=== PATIENT | female | born 2000 | race Caucasian/White ===

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

== ENCOUNTER 2021-05-17 16:50 | Emergency (ER) | payer BC, SELFPAY ==
[2021-05-17 16:51] VITALS: BP 100/72; PULSE 121; RESP 16; TEMP 37.6; O2SAT 100; BMI 24.0
[2021-05-17 17:14] VITALS: BP 100/72; PULSE 121; RESP 16; TEMP 37.6; O2SAT 100
--- NOTE | 2021-05-17 17:39 | EDS_ITS ---
HPI History of Present Illness Chief Complaint: General Illness Narrative Narrative: Patient who denies significant past medical history presents with multiple somatic complaints. She states that she has had the sniffles for weeks. This developed into a sore throat, and now has cough, along with subjective fever, chills, and body aches. She also states that she recently finished her menses/cycle, and now has bilateral lower quadrant abdominal pain and cramping. She denies any diarrhea, no dysuria. She states out of all of her symptoms, the cramping in her abdomen is the worst. No exacerbating or alleviating factors. PFSH PFSH Home Medications ondansetron 4 mg PO Q8H PRN PRN #10 tab 05/09/19 [Rx Last Taken Unknown] Allergy/AdvReac Type Severity Reaction Status Date / Time No Known Allergies Allergy Verified 05/17/21 16:51 Family History Other Hypertension Lung cancer Thyroid disorder Social History Smoking Status: Current every day smoker tobacco type: cigarettes ROS ROS ED ROS Narrative Constitutional: Positive fever, positive chills. HEENT: Positive sore throat. No neck pain. No loss of vision. No rhinorrhea. Cardiovascular: No chest pain. No palpitations. No pedal edema. Respiratory: Occasional cough, mild shortness of breath. Abdominal: Bilateral lower quadrant abdominal pain. No nausea. No vomiting. No diarrhea. Genitourinary: No dysuria. No hematuria. Musculoskeletal: Diffuse myalgias. No arthralgias. Neurologic: Intermittent headaches. No dizziness. No lightheadedness. Skin: No rash. No change in color. Psychiatric: No depression. No anxiety. EXAM Physical Exam Narrative Exam Narrative: Afebrile. Vital signs noted. Nontoxic-appearing. HEENT: Normocephalic. Atraumatic. PERRL, EOMI. Neck soft and supple. No point tenderness or step off. Cardiovascular: Regular rate and rhythm. No murmurs, rubs, or gallops appreciated. Respiratory: No tachypnea. Lungs clear to auscultation bilaterally. Gastrointestinal: Abdomen soft, nontender, with normoactive bowel sounds. No rebound or guarding. Neurological: Awake. Alert. Nonfocal, nonlateralizing. Skin: No rash. Normal color. No pallor. Musculoskeletal: No pedal edema. Full range of motion extremities. Const Vital Signs: 05/17/21 16:51 05/17/21 17:14 05/17/21 19:19 Temperature 99.7 F H 99.7 F H Temperature Source Temporal Temporal Pulse Rate 121 H 121 H 90 Respiratory Rate 16 16 18 Blood Pressure 100/72 100/72 137/60 H Blood Pressure Mean 81 81 85 Pulse Ox 100 100 99 Oxygen Delivery Method Room Air Room Air Room Air MDM MDM MDM Narrative Medical decision making narrative: Comprehensive work-up was pursued. She was swabbed for Covid and influenza. I will obtain basic laboratories and a CT of the abdomen and pelvis. Serum test was obtained along with urinalysis. Her serum test is negative. Her laboratory work is grossly unremarkable with a normal white count of 5.4, hemoglobin stable at 12.2. She is lymphopenic consistent with Covid. Potassium slightly low at 3.4. Her urinalysis is a contaminated specimen. I do not feel that antibiotics are indicated. I do feel that all her symptoms are consistent with COVID-19. Her influenza swab is negative but she is positive for COVID-19. She has been taking Tylenol and Motrin for headache. She will be given 30 mg of Toradol intravenously here. At this point in time I feel she be discharged safely home with follow-up. Return instructions to the emergency department were reviewed. Disposition is discharged home in stable condition. Additionally, I do not feel that she meets any criteria for monoclonal antibodies. Her BMI is not over 25 and she does not have significant comorbidities. Disposition is discharged home in stable condition. Lab Data Attestation: I reviewed the patient's lab results. Labs: Laboratory Results - last 24 hr 05/17/21 05/17/21 05/17/21 17:55 17:55 17:55 WBC 5.4 RBC 4.27 Hgb 12.2 Hct 37.5 MCV 87.8 MCH 28.6 MCHC 32.5 RDW Std Deviation 39.9 RDW Coeff of Radha 12.6 Plt Count 190 MPV 10.5 Immature Gran % (Auto) 0.600 Neut % (Auto) 71.4 H Lymph % (Auto) 11.6 L [place] % (Auto) 14.8 H Eos % (Auto) 0.9 Baso % (Auto) 0.7 Absolute Neuts (auto) 3.8 Absolute Lymphs (auto) 0.62 L Nucleated RBC % 0 Sodium 138 Potassium 3.4 L Chloride 105 Carbon Dioxide 26.0 Anion Gap 7 BUN 5 L Creatinine 0.63 Estim Creat Clear Calc 124.03 Est GFR (MDRD) Af Amer 155 Est GFR (MDRD) Non-Af 128 BUN/Creatinine Ratio 7.9 L Glucose 97 Calcium 8.9 Total Bilirubin 0.20 AST 10 L ALT 21 Alkaline Phosphatase 51 Total Protein 7.8 Albumin 3.9 Globulin 3.9 Albumin/Globulin Ratio 1.0 Serum , Qual NEGATIVE Urine Color Urine Clarity Urine pH Ur Specific [place] Urine Protein Urine Glucose (UA) Urine Ketones Urine Occult Blood Urine Nitrite Urine Bilirubin Urine Urobilinogen Ur Leukocyte Esterase Urine RBC Urine WBC Ur Squamous Epith Cells Urine Bacteria Urine Mucus 05/17/21 18:40 WBC RBC Hgb Hct MCV MCH MCHC RDW Std Deviation RDW Coeff of Radha Plt Count MPV Immature Gran % (Auto) Neut % (Auto) Lymph % (Auto) [place] % (Auto) Eos % (Auto) Baso % (Auto) Absolute Neuts (auto) Absolute Lymphs (auto) Nucleated RBC % Sodium Potassium Chloride Carbon Dioxide Anion Gap BUN Creatinine Estim Creat Clear Calc Est GFR (MDRD) Af Amer Est GFR (MDRD) Non-Af BUN/Creatinine Ratio Glucose Calcium Total Bilirubin AST ALT Alkaline Phosphatase Total Protein Albumin Globulin Albumin/Globulin Ratio Serum , Qual Urine Color SEE COMMENT BELOW Urine Clarity Clear Urine pH 7.0 Ur Specific [place] 1.005 Urine Protein 30 H Urine Glucose (UA) Normal Urine Ketones Negative Urine Occult Blood 250 H Urine Nitrite Negative Urine Bilirubin Negative Urine Urobilinogen Normal Ur Leukocyte Esterase 25 H Urine RBC 25-50 SEEN Urine WBC 0 SEEN Ur Squamous Epith Cells 5-10 SEEN Urine Bacteria 0 SEEN Urine Mucus 0 SEEN Discharge Plan Triage Chief Complaint: General Illness ED Provider: Shreyas Motley Dx/Rx/DC Orders Clinical Impression: COVID-19, Abdominal pain Instructions: Coronavirus Disease 2019 (COVID-19): Caring for Yourself or Others, ED Abdominal Pain Unkn Cause Fem Prescriptions: No Action ondansetron 4 MG tablet 4 mg PO Q8H PRN PRN (Reason: Nausea) Qty: 10 RF: 0 Primary Care Provider: Troy Dupont Referrals: Troy Dupont DO [Primary Care Provider] - 05/27/21 Disposition Disposition: Home, Self Care
[2021-05-17] MEDS: 0.9% Normal Saline 1,000 ML 1000 ML IV (18:02)
[2021-05-17 18:07] LABS: Absolute Lymphocyte Count 0.62 X10^3/uL (0.83-4.51); Absolute Neutrophil Count 3.8 X10^3/uL (2.0-7.7); Basophil# 0.04 X10^3/uL; Basophil% 0.7 % (0-1); Eosinophil# 0.05 X10^3/uL; Eosinophils% 0.9 % (0-5); Hematocrit 37.5 % (37-47); Hemoglobin 12.2 g/dL (12.0-15.0); Lymphocyte # 0.62 X10^3/ul (0.83-4.51); Lymphocyte % 11.6 % (19-41); Mean Corp Hgb Conc 32.5 g/dL (32-36); Mean Corpuscular Hgb 28.6 pg (27.0-32.0); Mean Corpuscular Volume 87.8 fL (81-99); Mean Platelet Vol. 10.5 fl (6.2-12.0); Monocyte# 0.79 X10^3/uL; Monocyte% 14.8 % (0-10); NRBC Flagged by Analyzer 0 % (0-5); Neutrophil # 3.82 X10^3/uL (2.7-7.7); Neutrophil % 71.4 % (47-70); Platelet Count 190 K/mm3 (150-450); RBC Distribution Width CV 12.6 % (11.6-14.6); RBC Distribution Width SD 39.9 fl (35.1-43.9); Red Blood Count 4.27 M/mm3 (4.2-5.4); White Blood Count 5.4 K/mm3 (4.4-11.0)
[2021-05-17 18:14] LABS: Internal QC Validated? YES +Cl - CLEAR BKGD; Pregnancy, Serum, hCG Quali. NEGATIVE Negative
[2021-05-17 18:21] LABS: AST(SGOT) 10 U/L (15-37); Alanine Aminotransfer ALT/SGPT 21 U/L (13-56); Albumin, Serum 3.9 g/dL (3.2-5.0); Alkaline Phosphatase 51 U/L (45-117); Anion Gap 7 (5-15); BUN 5 mg/dL (7-18); BUN/Creat Ratio 7.9 RATIO (10-20); Calcium,Total 8.9 mg/dL (8.5-10.1); Chloride 105 mmol/L (98-107); Creatinine, Serum 0.63 mg/dL (0.55-1.02); EST Glomerular Filtration Rate 128 mL/min (>60); Est Glom Filt Rate - Afr Amer 155 mL/min (>60); Estimated Creatinine Clearance 124.03 ml/min; Globulin 3.9 g/dL (2.2-4.2); Glucose 97 mg/dL (74-106); Potassium 3.4 mmol/L (3.5-5.1); Protein, Total 7.8 g/dL (6.4-8.2); Sodium Level 138 mmol/L (136-145)
[2021-05-17 18:51] LABS: Bacteria 0 SEEN /hpf (None Seen); Mucous, Urine 0 SEEN /hpf (<or=2+); White Blood Cells 0 SEEN /hpf (0-5)
[2021-05-17 19:07] LABS: Glucose, Dipstick Normal (Normal); Ketone-Dipstick Negative (Negative); Leukocyte Esterase-Dipstick 25 /ul (Negative); Nitrite-Dipstick Negative (Negative); Occult Blood-Urine 250 /ul (Negative); Protein-Dipstick 30 mg/dl (Negative); Specific Gravity, Urine 1.005 (1.002-1.030); Urine Bilirubin Dipstick Negative (Negative); Urine Clarity Clear (Clear); Urine Urobilinogen Normal (Normal)
[2021-05-17 19:19] VITALS: BP 137/60; PULSE 90; RESP 18; O2SAT 99
[2021-05-17 19:19] LABS: Color, Urine SEE COMMENT BELOW (Yellow)
[2021-05-17 19:24] LABS: Squamous Epithelial Cells - UA 5-10 SEEN /hpf (5-10)
[2021-05-17 19:25] LABS: Red Blood Cells-Urine 25-50 SEEN /hpf (0-5)
[2021-05-17] MEDS: Ketorolac 30 MG/ML Syringe IV (19:41)
[2021-05-17 19:51] VITALS: BP 137/68; PULSE 94; RESP 16; O2SAT 99
== END 2021-05-17 19:54 | disposition home or self-care (01) ==
PROVIDERS: Emergency Provider Emergency Medicine; PCP Student in an Organized Health Care Education/Training Program
DX: U07.1 COVID-19 (principal); R10.32 Left lower quadrant pain; R10.31 Right lower quadrant pain; F17.210 Nicotine dependence, cigarettes, uncomplicated
CPT/HCPCS: 80053; 81001; 84703; 85025; 87426; 87804; 96361; 96374; 99283; J7030; A4216

== ENCOUNTER 2021-08-14 07:47 | Emergency (ER) | payer SELFPAY ==
[2021-08-14 07:48] VITALS: BP 128/75; PULSE 103; RESP 16; TEMP 36.1; O2SAT 100; BMI 25.3
--- NOTE | 2021-08-14 08:23 | ED.VIS.GI ---
HPI HPI - GI History of Present Illness Chief Complaint: Abd Pain Abdominal Pain/Flank Pain Onset: Days (2) Context: Gradual Onset Timing: Continuous Quality: Aching and Burning Location: RLQ and LLQ Worsened by: Nothing Relieved by: - (Drinking water) Nausea/Vomiting/Emesis GI Symptom: Negative for Nausea and Vomiting Diarrhea/Melena/Hematochezia GI Symptom: Negative for Diarrhea, Melena and Hematochezia Associated Symptoms Associated Symptoms: Positive for Dysuria; Negative for Frequency and Hematuria Narrative Narrative: Patient presents with abdominal pain that has been getting worse over the past 2 days. Patient states that it is constant. Patient describes her pain as burning and aching. Patient states her pain is over her lower abdomen. Patient states it has gradually gotten worse. Patient states nothing makes it worse. Patient states it was better after she drank water. Patient admits to some dysuria but denies any hematuria. Patient admits to some pain going into her back. Patient denies any nausea or vomiting. Patient denies any diarrhea, melena, or hematochezia. PFSH PFSH Medical History no medical history no medical history Home Medications sulfamethoxazole-trimethoprim 1 tab PO BID #6 tablet 08/14/21 [Rx Last Taken Unknown] Allergy/AdvReac Type Severity Reaction Status Date / Time No Known Allergies Allergy Verified 08/14/21 07:50 Family History Other Hypertension Lung cancer Thyroid disorder Surgical History no surgical history no surgical history Social History Smoking Status: Current every day smoker tobacco type: cigarettes ROS ROS ED Constitutional Constitutional ED: Denies chills or fever(s) Eyes Eyes: Reports blurry vision; Denies diplopia ENT ENT ED: Denies rhinorrhea or sore throat Cardiovascular Cardiovascular: Denies chest pain or palpitations Respiratory/Chest Respiratory/Chest: Denies cough or dyspnea Gastrointestinal Gastrointestinal: Reports abdominal pain; Denies nausea or vomiting Genitourinary Genitourinary ED: Reports dysuria; Denies hematuria Musculoskeletal Musculoskeletal: Reports back pain and myalgias Integumentary Denies abscess or rash Neurologic Neurologic: Reports headache(s); Denies weakness Allergic/Immunologic Allergic/Immunologic ED: Denies mouth swelling or urticaria EXAM Physical Exam Const Vital Signs: 08/14/21 07:48 Temperature 97.0 F L Temperature Source Temporal Pulse Rate 103 H Respiratory Rate 16 Blood Pressure 128/75 H Blood Pressure Mean 92 Pulse Ox 100 Oxygen Delivery Method Room Air Positive well nourished and well developed General Appearance ED: well developed and NAD HEENT Reports moist mucous membranes Neck supple and no JVD Resp normal respiratory effort and clear to auscultation bilaterally Cardio regular rate, regular rhythm and no murmurs GI normal to inspection, nondistended, normoactive bowel sounds and non-distended Auscultation: normoactive bowel sounds Palpation: soft and tender LLQ, RLQ and suprapubic; Negative for guarding or rebound tenderness present Extremity normal to inspection General Extremety ED: Negative for edema or tenderness General Extremity: Negative for edema Neuro oriented x3, CN's II-XII intact bilaterally and no sensory deficits noted Sensorium / Orientation: alert Motor Exam: strength 5/5 throughout Psych mental status grossly normal Skin no rashes or lesions noted MDM MDM MDM Narrative Medical decision making narrative: Patient was very fluids, morphine, and Zofran here. CBC was within normal limits. Comprehensive metabolic profile was essentially within normal limits. Anion gap was normal. Lipase was normal. Serum hCG was negative. CT scan of the abdomen pelvis was obtained. There is no acute abnormality noted. This was interpreted by the radiologist and reviewed by myself. Urinalysis shows a leukocyte esterases of 100 with 10-25 white blood cells. Urine culture was ordered. Patient was given a dose of Bactrim here. Patient was given a prescription for a short course of Bactrim. Patient was instructed to drink plenty of fluids. Patient was instructed to follow-up with her primary care physician in 5 to 7 days. Patient understood and was agreeable with the plan. All questions were answered. Lab Data Labs: Laboratory Results - last 24 hr 08/14/21 08/14/21 08/14/21 08:45 08:45 08:45 WBC 5.3 RBC 4.43 Hgb 12.7 Hct 38.0 MCV 85.8 MCH 28.7 MCHC 33.4 RDW Std Deviation 42.5 RDW Coeff of Radha 13.7 Plt Count 148 L MPV 11.9 Immature Gran % (Auto) 0.400 Neut % (Auto) 51.6 Lymph % (Auto) 35.4 [place] % (Auto) 9.5 Eos % (Auto) 2.7 Baso % (Auto) 0.4 Absolute Neuts (auto) 2.7 Absolute Lymphs (auto) 1.86 Nucleated RBC % 0 Sodium 137 Potassium 3.7 Chloride 107 Carbon Dioxide 30.0 Anion Gap 0 L BUN 6 L Creatinine 0.54 L Estim Creat Clear Calc 144.70 Est GFR (MDRD) Af Amer 188 Est GFR (MDRD) Non-Af 155 BUN/Creatinine Ratio 11.2 Glucose 97 Calcium 8.5 Total Bilirubin 0.20 AST 11 L ALT 16 Alkaline Phosphatase 43 L Total Protein 7.0 Albumin 3.7 Globulin 3.3 Albumin/Globulin Ratio 1.1 Lipase 88 Serum , Qual NEGATIVE Urine Color Urine Clarity Urine pH Ur Specific [place] Urine Protein Urine Glucose (UA) Urine Ketones Urine Occult Blood Urine Nitrite Urine Bilirubin Urine Urobilinogen Ur Leukocyte Esterase Urine RBC Urine WBC Ur Squamous Epith Cells Urine Bacteria Urine Mucus 08/14/21 08:45 WBC RBC Hgb Hct MCV MCH MCHC RDW Std Deviation RDW Coeff of Radha Plt Count MPV Immature Gran % (Auto) Neut % (Auto) Lymph % (Auto) [place] % (Auto) Eos % (Auto) Baso % (Auto) Absolute Neuts (auto) Absolute Lymphs (auto) Nucleated RBC % Sodium Potassium Chloride Carbon Dioxide Anion Gap BUN Creatinine Estim Creat Clear Calc Est GFR (MDRD) Af Amer Est GFR (MDRD) Non-Af BUN/Creatinine Ratio Glucose Calcium Total Bilirubin AST ALT Alkaline Phosphatase Total Protein Albumin Globulin Albumin/Globulin Ratio Lipase Serum , Qual Urine Color Straw Urine Clarity Sl. Cloudy Urine pH 7.0 Ur Specific [place] 1.010 Urine Protein Negative Urine Glucose (UA) Normal Urine Ketones Negative Urine Occult Blood Negative Urine Nitrite Negative Urine Bilirubin Negative Urine Urobilinogen Normal Ur Leukocyte Esterase 100 H Urine RBC 0-5 SEEN Urine WBC 10-25 SEEN Ur Squamous Epith Cells 0-5 SEEN Urine Bacteria RARE Urine Mucus 0 SEEN Radiography Diagnostic Testing: Clinical Impression(s) from Imaging Studies Abdomen/Pelvis CT 08/14/21 08:28 IMPRESSION: Normal unenhanced CT of the abdomen and pelvis. Electronically Signed: Wallace Muniz MD at 9:45 EDT , Discharge Plan Triage Chief Complaint: Abd Pain ED Provider: Dilip Xiong Dx/Rx/DC Orders Clinical Impression: Urinary tract infection Instructions: ED CYSTITIS Female Adult Prescriptions: New sulfamethoxazole-trimethoprim [sulfamethoxazole-trimethoprim] 1 TABLET tablet 1 tab PO BID Qty: 6 RF: 0 Primary Care Provider: Troy Dupont Referrals: Troy Dupont DO [Primary Care Provider] - 3-5 Days Disposition Disposition: Home, Self Care
--- NOTE | 2021-08-14 08:28 | CT_ITS ---
STUDY: CT ABDOMEN AND PELVIS WITHOUT CONTRAST REASON FOR EXAM: Female, 20 years old. Pain RADIATION DOSAGE (If Supplied By Facility): CTDIvol = ( 6.46 ) mGy, DLP = ( 324.17 ) mGycm TECHNIQUE: Transaxial images were obtained from the dome of the diaphragm to the symphysis pubis without oral contrast, and without intravenous contrast. Sagittal and coronal images were reconstructed. Individualized dose optimization techniques were used for this CT. COMPARISON: None. FINDINGS: The visualized lung bases are unremarkable. The visualized portions of the heart are within normal limits. Normal liver. Normal gallbladder and extrahepatic biliary system. Normal spleen. Normal pancreas. Normal bilateral adrenal glands. Normal right kidney. Normal left kidney. Normal visualized stomach. Normal small intestine. Normal colon. The appendix is visualized and appears normal. Normal abdominal aorta. Normal inferior vena cava. Normal retroperitoneum. Normal urinary bladder. Normal abdominal wall. Normal osseous structures. CT/Abdomen/Pelvis without Cont IMPRESSION: Normal unenhanced CT of the abdomen and pelvis. Electronically Signed: Wallace Muniz MD at 9:45 EDT ,
[2021-08-14] MEDS: Ondansetron 4 MG/2 ML Vial IV (08:45)
[2021-08-14] MEDS: 0.9% Normal Saline 1,000 ML 1000 ML IV (08:45)
[2021-08-14] MEDS: Morphine 4 MG/ML Syringe IV (08:45)
[2021-08-14 08:57] LABS: Mucous, Urine 0 SEEN /hpf (<or=2+)
[2021-08-14 09:06] LABS: Absolute Lymphocyte Count 1.86 X10^3/uL (0.83-4.51); Absolute Neutrophil Count 2.7 X10^3/uL (2.0-7.7); Basophil# 0.02 X10^3/uL; Basophil% 0.4 % (0-1); Eosinophil# 0.14 X10^3/uL; Eosinophils% 2.7 % (0-5); Hemoglobin 12.7 g/dL (12.0-15.0); Lymphocyte # 1.86 X10^3/ul (0.83-4.51); Lymphocyte % 35.4 % (19-41); Mean Corp Hgb Conc 33.4 g/dL (32-36); Mean Corpuscular Hgb 28.7 pg (27.0-32.0); Mean Corpuscular Volume 85.8 fL (81-99); Mean Platelet Vol. 11.9 fl (6.2-12.0); Monocyte% 9.5 % (0-10); NRBC Flagged by Analyzer 0 % (0-5); Neutrophil # 2.72 X10^3/uL (2.7-7.7); Neutrophil % 51.6 % (47-70); Platelet Count 148 K/mm3 (150-450); RBC Distribution Width CV 13.7 % (11.6-14.6); RBC Distribution Width SD 42.5 fl (35.1-43.9); Red Blood Count 4.43 M/mm3 (4.2-5.4); White Blood Count 5.3 K/mm3 (4.4-11.0)
[2021-08-14 09:11] LABS: Color, Urine Straw (Yellow); Glucose, Dipstick Normal (Normal); Ketone-Dipstick Negative (Negative); Leukocyte Esterase-Dipstick 100 /ul (Negative); Nitrite-Dipstick Negative (Negative); Occult Blood-Urine Negative /ul (Negative); Protein-Dipstick Negative (Negative); Urine Bilirubin Dipstick Negative (Negative); Urine Clarity Sl. Cloudy (Clear); Urine Urobilinogen Normal (Normal)
[2021-08-14 09:13] LABS: Internal QC Validated? YES +Cl - CLEAR BKGD; Pregnancy, Serum, hCG Quali. NEGATIVE Negative
[2021-08-14 09:17] LABS: Red Blood Cells-Urine 0-5 SEEN /hpf (0-5); Squamous Epithelial Cells - UA 0-5 SEEN /hpf (5-10); White Blood Cells 10-25 SEEN /hpf (0-5)
[2021-08-14 09:18] LABS: Bacteria RARE /hpf (None Seen)
[2021-08-14 09:21] LABS: ALB/GLOB Ratio 1.1 RATIO (0.9-2.4); AST(SGOT) 11 U/L (15-37); Alanine Aminotransfer ALT/SGPT 16 U/L (13-56); Albumin, Serum 3.7 g/dL (3.2-5.0); Alkaline Phosphatase 43 U/L (45-117); Anion Gap 0 (5-15); BUN 6 mg/dL (7-18); BUN/Creat Ratio 11.2 RATIO (10-20); Calcium,Total 8.5 mg/dL (8.5-10.1); Chloride 107 mmol/L (98-107); Creatinine, Serum 0.54 mg/dL (0.55-1.02); EST Glomerular Filtration Rate 155 mL/min (>60); Est Glom Filt Rate - Afr Amer 188 mL/min (>60); Globulin 3.3 g/dL (2.2-4.2); Glucose 97 mg/dL (74-106); Lipase 88 U/L (73-393); Potassium 3.7 mmol/L (3.5-5.1); Sodium Level 137 mmol/L (136-145)
[2021-08-14 10:54] VITALS: BP 100/76; PULSE 59; RESP 16; O2SAT 100
== END 2021-08-14 10:56 | disposition home or self-care (01) ==
PROVIDERS: Emergency Provider Emergency Medicine; PCP Student in an Organized Health Care Education/Training Program; Visit Provider Emergency Medicine
DX: N39.0 Urinary tract infection, site not specified (principal); F17.210 Nicotine dependence, cigarettes, uncomplicated
CPT/HCPCS: 74176; 80053; 81001; 83690; 84703; 85025; 96361; 96374; 96375; 99283; J7030; A4216; J2405